=== PATIENT | male | born 1930 | race Caucasian/White ===

== ENCOUNTER 2017-08-10 13:14 | Emergency (ER) | payer MEDICARE, BC | END 2017-08-10 14:18 | disposition home or self-care (01) | LOC: SCSER 13:14 | DX: J06.9 Acute upper respiratory infection, unspecified (principal); I48.91 Unspecified atrial fibrillation; E78.5 Hyperlipidemia, unspecified | CPT/HCPCS: 99283 ==

== ENCOUNTER 2017-08-14 21:17 | Emergency (ER) | payer MEDICARE, BC ==
[2017-08-14 22:00] LABS: ALT (SGPT) 18 U/L (8-55); AST (SGOT) 24 U/L (5-34); Albumin 3.5 g/dL (3.4-4.8); Alkaline Phosphatase 55 U/L (40-150); Anion Gap 12 mmol/L (10-20); BUN (Urea Nitrogen) 14 mg/dL (8.4-25.7); Bilirubin, Total 0.4 mg/dL (0.2-1.2); Calc. Creatinine Clearance 0 mL/min (70-130); Calcium 8.8 mg/dL (7.8-10.44); Carbon Dioxide 26 mmol/L (23-31); Chloride 105 mmol/L (98-107); Estimated GFR-MDRD 55; Globulin 2.1 g/dL (2.4-3.5); Glucose 107 mg/dL (83-110); Potassium 3.8 mmol/L (3.5-5.1); Protein, Total 5.6 g/dL (5.8-8.1); Sodium 139 mmol/L (136-145)
[2017-08-14 22:13] LABS: Anisocytosis SLIGHT = 6-15 cells (100X) (0-5/hpf); Band 19 % (5-11); Eosinophils 2 % (0-10); Giant Platelets SLIGHT; Hemoglobin 12.6 g/dL (14.0-18.0); Lymphocytes 6 % (21-51); MDiff Complete? YES; Macrocytosis SLIGHT = 6-15 cells (100X) (0-5/hpf); Mean Corpuscular HGB CONC 33.9 g/dL (32.0-36.0); Mean Corpuscular Hemoglobin 35.2 pg (27.0-31.0); Mean Platelet Volume 9.1 fL (7.4-10.4); Monocytes 4 % (0-10); Neutrophil 64 % (42-75); PLT Morphology Comment Appears Adequate; Platelet Count 126 thou/uL (130-400); RBC Distribution Width 14.3 % (11.5-14.5); Reactive Lymphocytes 2 % (0-10); Red Blood Cell (RBC) Count 3.59 mill/uL (4.70-6.10); Stomatocytes SLIGHT = 2-5 cells (100X) (0-1/hpf); White Blood Cell (WBC) Count 3.9 thou/uL (4.8-10.8)
[2017-08-14] MEDS ORDERED: cefTRIAXone\\ROCEPHIN 1 GM VIAL ONE (22:22)
[2017-08-14] MEDS ORDERED: Azithromycin 250 MG TAB ONE ×2 (22:22→22:32)
[2017-08-14] MEDS ORDERED: Sodium Chloride 0.9% 100 ML ONE (22:23)
--- NOTE | 2017-08-14 22:23 | RAD ---
CHEST TWO VIEWS 08/14/17 COMPARISON: 10/03/09. HISTORY: Sore throat and cough. FINDINGS: Right sided Mediport catheter with distal tip projecting over the superior vena cava. Slight elongati on of the aorta. Normal cardiac silhouette. Pulmonary vessels and hilum are normal. Costophrenic angl es are clear. Hyperinflation. Chronic changes. No masses or consolidation. No pneumothorax. Probable old healed right proximal humerus fracture. Correlate clinically. IMPRESSION: 1. Chronic changes. 2. Probable old right proximal humerus fracture. Correlate clinically. POS: [facility]
== END 2017-08-14 23:32 | disposition home or self-care (01) ==
LOC: SCSER 21:17
DX: J20.9 Acute bronchitis, unspecified (principal); E78.5 Hyperlipidemia, unspecified; I48.91 Unspecified atrial fibrillation; Z79.899 Other long term (current) drug therapy; Z79.82 Long term (current) use of aspirin
CPT/HCPCS: 71046; 80053; 85025; 87804; 96365; J0696; J7050

== ENCOUNTER 2017-09-30 19:09 | Inpatient (IN) | payer MEDICARE, BC ==
[2017-09-30 20:25] LABS: Anion Gap 14 mmol/L (10-20); BUN (Urea Nitrogen) 15 mg/dL (8.4-25.7); Calc. Creatinine Clearance 0 mL/min (70-130); Carbon Dioxide 23 mmol/L (23-31); Chloride 105 mmol/L (98-107); Estimated GFR-MDRD 52; Glucose 112 mg/dL (83-110); Potassium 3.6 mmol/L (3.5-5.1); Sodium 138 mmol/L (136-145)
[2017-09-30 20:29] LABS: Anisocytosis SLIGHT = 6-15 cells (100X) (0-5/hpf); Band 19 % (5-11); Elliptocytes SLIGHT = 2-5 cells (100X) (0-1/hpf); Eosinophils 5 % (0-10); Hypochromia SLIGHT = 6-15 cells (100X) (0-5/hpf); Lymphocytes 12 % (21-51); MDiff Complete? YES; Macrocytosis MODERATE=16-30 cells (100X) (0-5/hpf); Mean Corpuscular HGB CONC 33.1 g/dL (32.0-36.0); Mean Corpuscular Hemoglobin 34.3 pg (27.0-31.0); Mean Platelet Volume 17.1 fL (7.4-10.4); Monocytes 8 % (0-10); Neutrophil 51 % (42-75); PLT Morphology Comment Appears Decreased; Platelet Count 78 thou/uL (130-400); RBC Distribution Width 16.2 % (11.5-14.5); Reactive Lymphocytes 3 % (0-10); Reflex for Review?? NO; White Blood Cell (WBC) Count 2.2 thou/uL (4.8-10.8)
[2017-09-30] MEDS ORDERED: Sodium Chloride 0.9% 100 ML ONE (20:38)
[2017-09-30] MEDS ORDERED: cefTRIAXone\\ROCEPHIN 2 GM VIAL ONE (20:38)
--- NOTE | 2017-09-30 21:31 | RAD ---
TWO VIEWS CHEST: Date: 09-30-17 Comparison: 08-14-17 History: Cough with mucous, fever. FINDINGS: Stable right sided port-a-cath. Heart and mediastinal contours are stable with no pneumothorax or ple ural fluid and no focal consolidation or alveolar edema. There are thoracic spine degenerative change s. There is an old fracture of the proximal humerus on the right and there are degenerative changes i nvolving bilateral AC joints. IMPRESSION: No acute findings. POS: [facility]
[2017-09-30] MEDS ORDERED: Vancomycin HCl 500 MG VIAL ONE (21:32)
[2017-09-30] MEDS ORDERED: Sterile Water 30 ML ONE (21:33)
[2017-09-30] MEDS ORDERED: Oseltamivir 75 MG CAP ONE (21:52)
[2017-09-30 21:58] LABS: Bilirubin Negative (Negative); Blood, Urine Trace (Negative); Clarity Slightly Cloudy (Clear); Glucose, Urine (Dipstick) Negative (Negative); Leukocyte Negative (Negative); Nitrite Negative (Negative); Protein, Urine (Dipstick) 30 mg/dL (Neg-Trace); Urobilinogen 0.2 mg/dL (0.2-1.0); pH, Urine 5.5 (5.0-9.0)
[2017-09-30 22:01] LABS: Bacteria/HPF Rare-Few HPF (None Seen); Crystals/HPF 1+ AMORPH URATES HPF (Negative); RBC/HPF 0-3 HPF (0-3); Squamous Epithelial 0-3 HPF (0-3); WBC/HPF 0-3 HPF (0-3)
[2017-09-30 22:26] LABS: Dohle Bodies SLIGHT
[2017-09-30 22:54] VITALS: BMI 23.6
[2017-09-30] MEDS ORDERED: Ondansetron ODT 4 MG TAB SL PRN (23:15)
[2017-09-30] MEDS ORDERED: Acetaminophen 325 MG TAB PO PRN (23:15)
[2017-09-30] MEDS ORDERED: Ondansetron HCl/PF 4 MG/2 ML Vial IVP PRN (23:15)
[2017-10-01] MEDS ORDERED: Ondansetron ODT 4 MG TAB PO PRN (00:32)
[2017-10-01] MEDS ORDERED: HYDROcodone/Acetaminophen 10/325 mg Tablet PO PRN (00:32)
[2017-10-01] MEDS ORDERED: HYDROcodone/Acetaminophen 5/325 mg Tablet PO PRN (00:32)
--- NOTE | 2017-10-01 06:03 | HP ---
DATE OF ADMISSION: 09/30/2017 TIME OF SERVICE: 2330 hours. PRIMARY CARE PHYSICIAN: Out of town. He is a city call. PRIMARY ONCOLOGIST HERE: Cecille He M.D. CHIEF COMPLAINT: Skin infection and fever. HISTORY OF PRESENT ILLNESS: Mr. Holland is a pleasant 87-year-old white male, who appears much young er than his stated age, who has a history of multiple myeloma, recent squamous cell carcinoma of scal p, status post resection and skin graft in the left thigh. He is getting chemo for his multiple myel senthil, the last was about 3 weeks ago. He takes on the first week of the month. The patient has had 3 days of just feeling poorly. Over the last few days, he has felt more sick with cough, congestion, and body aches. He had a temperature of 102.5 today and cough productive of some clear to white phle gm. He presented to an outside emergency department, where he was evaluated. Total white blood cell count was 2.2, but ANC was 1500. He has had 19% bands, 70,000 platelets and otherwise fairly normal chemistries. His graft harvest site from his left thigh was red and granulating, but did have some erythema, minimal drainage and multiple sub to 1 mm pustules present around the outside edge. Due to possibility of wound infection and fever, he was transported, directly admitted to our hospital. After acceptance, the patient's flu test did come back positive. He has been placed on flu precautio ns. On arrival, he is feeling better. Denies any current fevers or chills, nausea, and vomiting. PAST MEDICAL HISTORY: 1. Chronic atrial fibrillation. 2. Multiple myeloma. 3. Squamous cell carcinoma of the scalp. 4. Resume chemotherapy for myeloma. 5. Hyperlipidemia. 6. Gout, not active. PAST SURGICAL HISTORY: 1. Cholecystectomy. 2. Bilateral TKA remotely. 3. Skin cancer removal about 2 months ago and skin grafting about 2 months ago. HOME MEDICATIONS: 1. Doxycycline 100 mg daily for prophylaxis. 2. Allopurinol 300 mg daily. 3. Cyclobenzaprine 10 mg daily. 4. Oxycodone 5 mg daily. 5. Aspirin 81 mg daily. 6. Eplerenone 25 mg daily. 7. Calcium carbonate 600 mg daily. 8. Welchol 625 mg daily. 9. Diltiazem extended-release 240 mg daily. 10. Carac 0.5% topical. 11. Folate 0.4 mg daily. 12. [place]bank 5/325 as needed. 13. Nitroglycerin sublingual as needed. 14. Prednisone 20 mg daily. 15. Revlimid 2.5 mg daily. 16. Valcyte 500 mg daily. 17. Eliquis 5 mg p.o. b.i.d. ALLERGIES: STATINS. FAMILY HISTORY: Negative for clotting or bleeding disorder, no immune dysfunction. SOCIAL HISTORY: Significant for occasional alcohol, but negative for drugs or tobacco. REVIEW OF SYSTEMS: A 10-point review of systems was performed and is negative for all other systems except stated as per HPI. PHYSICAL EXAMINATION: VITAL SIGNS: Temperature 99.3, pulse 56, blood pressure 107/47, respiratory rate 16, is in 90% room air. GENERAL: He is awake. He is alert. He is oriented x3. Well-developed, well-nourished, elderly whi te male, appears to be in no acute distress. HEENT: Normocephalic, atraumatic. Pupils equal and reactive bilaterally. Mucous membranes moist. No visible lesion or thrush. NECK: Supple with no lymphadenopathy, JVD, or thyromegaly. LUNGS: Clear. He has no wheezes, no rales, no rhonchi. With deep inspiration, does have a pretty s ignificant cough, but it is nonproductive. CARDIOVASCULAR: He has a normal cardiac. He does appear to be regular. He has no audible murmurs. ABDOMEN: Soft. It is nontender, nondistended. No masses or organomegaly. EXTREMITIES: Show no cyanosis, no clubbing, no edema, 2+ peripheral pulses in dorsalis pedis and pos terior tibial arteries. SKIN: He has a 2-3 cm circular scar on the right posterior scalp is well healed from the skin graft. On his left thigh, he has a 3 x 5 cm rectangle graft harvest site. It is hypergranulated in areas surrounding the entire wound. He does have a 2-3 rows of 1/2-1 mm pustules present. These were nont karen and not draining at present. He does have some slight seropurulent drainage. There is no fluc tuance. NEUROLOGIC: Cranial nerves II through XII are grossly intact. There are no focal deficits. MUSCULOSKELETAL EXAM: Normal to inspection. Large joints appear uninflamed. They have no palpable effusions. LABORATORY DATA: Sodium 138, potassium 3.8, chloride 105, bicarb 23, BUN 15, creatinine 1.31, which is baseline. Glucose of 112 and calcium of 8.0. CBC showed a white count of 2.2, hemoglobin 10.0, hematocrit 30.1, and platelet count is 78,000. ANC is 1500. He has 51% granulocytes, 19% bands, 12% lymphocytes, and 3% atypical lymphocytes. RADIOGRAPHIC STUDIES: He had chest x-ray that showed MediPort of the right chest. He has interstiti al prominence, but no consolidative changes. MICROBIOLOGIC DATA: He had a nasal swab for influenza that is positive for flu A, negative for flu B . ASSESSMENT AND PLAN: 1. Influenza A. 2. Impetigo of the left thigh graft harvest site. 3. Multiple myeloma. 4. Receive chemotherapy. 5. Paroxysmal atrial fibrillation, currently in sinus rhythm. 6. Hyperlipidemia. 7. History of gout. 8. We will resume home medications. We will add Bactrim-DS 2 p.o. b.i.d. for the impetigo and does look Staphylococcal. He has been on doxycycline for prophylaxis at low dose, but not enough obviousl y to treat. We will start oseltamivir for his Tamiflu 75 mg b.i.d. for 5 days and we placed him in d roplet precautions. I will notify Dr. He of his admission. Last wound care to evaluate him for his nonhealing wound . I think likely he might need some nonadherent dressing or Vaseline gauze with some silver nitrate and silver sulfadiazine for the antimicrobial properties, at least initially. Placed the patient in observation overnight and reevaluate in the morning.
[2017-10-01] MEDS: Oseltamivir 75 MG CAP PO SCH ×2 (08:11→20:45)
[2017-10-01] MEDS: Acetaminophen 325 MG TAB PO PRN ×2 (08:11→20:48)
[2017-10-01] MEDS: Sulfameth/Trimethoprim DS 800-160mg TAB PO SCH ×2 (08:11→20:46)
[2017-10-01] MEDS: Famotidine 20 MG TAB PO SCH (08:11)
--- NOTE | 2017-10-01 13:53 | PDOC.PN ---
- Subjective Encounter Start Date: 10/01/17 Encounter Start Time: 13:51 cc: dYSPNEA SUB: Pt c/o some cough - Objective Resuscitation Status: Resuscitation Status FULL:Full Resuscitation Vital Signs & Weight: Vital Signs (12 hours) Temp Pulse Resp BP Pulse Ox 10/01/17 11:43 97.9 F 67 20 130/76 96 10/01/17 08:00 97.9 F 67 20 96 10/01/17 07:40 99.4 F 73 14 125/66 95 10/01/17 05:54 98.8 F 68 20 121/61 93 L Weight Admit Weight 159 lb 13.362 oz Weight 159 lb 13.362 oz I&O: 09/30/17 10/01/17 10/02/17 06:59 06:59 06:59 Intake Total 424 Balance 424 Result Diagrams: 09/30/17 20:00 09/30/17 20:00 Phys Exam - Physical Examination Constitutional: NAD HEENT: moist MMs Neck: no JVD Respiratory: no wheezing, no rales positive crackles Cardiovascular: RRR, no significant murmur, no rub Gastrointestinal: soft, non-tender Musculoskeletal: no edema Neurological: non-focal Psychiatric: normal affect Dx/Plan - Plan Pt is 87 yrs old male 1. Acute influenza infection 2. Leukopenia 3. H/O MM 4. Weakness 5. Left thigh impetigo 6. AFIB plan: 1. Continue tamiflu and bactrim. Will consult Dr Benitez to evaluate patient. 2. Continue iv fluids 3. Repeat CBC with diff & BMP in am 4. Hold eliquis due to thrombocytopenia 5. Monitor bp closely case d/w pt & RN
--- NOTE | 2017-10-01 15:00 | CON ---
DATE OF CONSULTATION: 10/01/2017 REASON FOR CONSULTATION: Multiple myeloma. HISTORY OF PRESENT ILLNESS: Mr. Holland is a pleasant 87-year-old gentleman who has a lambda light c teena multiple myeloma, he is on daratumumab which he receives monthly. His last dose was on 09/17/2017. Over the last few days, he began to feel poorly with body aches, cough, and congestion. His temperature was elevated at 102.5. So he presented to the emergency room for evaluation. He w as positive for influenza A. He has a history of squamous cell carcinoma of the scalp. He had a rec ent skin graft from his right side. This area was also red and inflamed with pustules. He was thus admitted for further treatment. Patient had a history of leukopenia with baseline WBC around 2.5-4. He is on prophylactic Valtrex daily. He has no complaints at this time. PAST MEDICAL HISTORY: 1. Lambda light chain multiple myeloma. 2. Squamous cell carcinoma of the scalp. 3. History of pathological fracture of the right humerus. 4. Osteoarthritis. 5. History of varicella zoster. 6. Hypertension. 7. Coronary artery disease. 8. High cholesterol. PAST SURGICAL HISTORY: 1. MediPort placement. 2. Cholecystectomy. 3. Skin graft. ALLERGIES: No known drug allergies. HOME MEDICATIONS: 1. Eliquis 5 mg b.i.d. 2. Aspirin 81 mg daily. 3. Welchol 625 daily. 4. Flexeril daily. 5. Diltiazem 240 daily. 6. Doxycycline hyclate 100 mg q.12. 7. Eplerenone 25 mg daily. 8. Folic acid daily. 9. Oxycodone p.r.n. 10. Prednisone daily. 11. Tramadol p.r.n. 12. Valtrex 500 mg daily. FAMILY HISTORY: Noncontributory. SOCIAL HISTORY: , lives with his spouse. Spends most of his time in [place]. No alco hol, tobacco or illicit drug use. REVIEW OF SYSTEMS: Twelve point review of systems is negative except for noted in HPI. PHYSICAL EXAMINATION: VITAL SIGNS: Temperature is 97.9, pulse is 67, respiratory rate 20, BP is 130/76, 96% on room air. GENERAL: Well-developed, well-nourished male in no acute distress. HEENT: Normocephalic, atraumatic. Pupils are equal, round and reactive to light. NECK: Supple. CARDIOVASCULAR: Regular rate and rhythm. LUNGS: Clear. ABDOMEN: Soft and nontender. Bowel sounds are positive. EXTREMITIES: No clubbing, cyanosis or edema. SKIN: He has a dressing on his right side from skin graft and a healing resection on his scalp from squamous cell. He does have nonraised rash on his chest. NEUROLOGIC: Nonfocal. HEMATOLOGIC: There is no petechia or purpura. PSYCHIATRIC: He is alert, oriented and appropriate. PERTINENT LABORATORY DATA AND IMAGING DATA: Current WBCs are 2.2, hemoglobin 10, hematocrit 30.1, an d platelet count is 78,000. He has got 51% neutrophils, 19% bands, 12% lymphocytes. Sodium is 138, potassium 3.6, chloride 105, CO2 is 23, BUN is 15, and creatinine 1.31. Lactic acid 1.7, calcium is 8. Urine is negative for bacteria. Influenza A positive. ASSESSMENT AND PLAN: 1. Lambda light chain multiple myeloma on Darzalex. 2. Chronic leukopenia. 3. Influenza A. 4. 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 DISCUSSION: The patient has been placed on Tamiflu. He is receiving antibiotics and wound care for his left thigh infection. Would recommend changing from Bactrim as patient is already thrombocytopen ic. We will follow daily CBC and advised to provide supportive care. Thank you for the consult.
[2017-10-02] MEDS: Famotidine 20 MG TAB PO SCH (09:24)
[2017-10-02] MEDS: Sulfameth/Trimethoprim DS 800-160mg TAB PO SCH (09:25)
[2017-10-02] MEDS: Oseltamivir 75 MG CAP PO SCH (10:35)
--- NOTE | 2017-10-02 13:52 | DIS ---
DATE OF ADMISSION: 09/30/2017 DATE OF DISCHARGE: 10/02/2017 PRIMARY CARE PROVIDER: Dr. Cecille He. DISCHARGE DISPOSITION: Discharged home. FINAL DIAGNOSES: Influenza A; cellulitis of left upper leg; multiple myeloma; pancytopenia; chronic kidney disease, stage 3; atrial fibrillation, chronic anticoagulation; dyslipidemia. DISCHARGE MEDICATIONS: New, Septra-DS 1 p.o. b.i.d. x10 more days, Tamiflu 75 mg p.o. b.i.d. for a t otal of 5 days. Other medicines are chronic home medicines. They are Eliquis 5 mg p.o. b.i.d., Revl imid 2.5 mg a day, Valtrex 500 mg p.o. b.i.d., prednisone 20 mg as directed, allopurinol 300 mg a day , eplerenone 25 mg a day, diltiazem 240 mg a day, tramadol 50 mg p.o. q.6 hours p.r.n., folic acid 0. 4 mg a day, oxycodone 5 mg p.o. q.6 hours p.r.n., Aspirin 81 mg a day, Flexeril 10 mg a day, Welchol 625 mg a day. ALLERGIES: STATINS. CODE STATUS: FULL. PENDING AT THE TIME OF DISCHARGE: Two blood cultures are negative to date at 48 hours. HOSPITAL COURSE: [facility] with skin infection or fever. His basic metabolic profile was normal except for BUN 15, c reatinine 1.31, which is baseline. CBC showed a white count of 2.2, hemoglobin 10, platelet count of 78,000. Chest x-ray revealed no pneumonia. Nasal swab revealed flu A. He was started on Septra-DS 2 twice a day and Tamiflu. He has improved dramatically during his hospital stay. Currently, chest is clear. Heart, regular rate and rhythm. Vital signs are stable, afebrile. His Septra is being d ropped to 1 b.i.d. at discharge due to his chronic kidney disease, stage 3. No consultations were obtained. No procedures were done. The patient is doing well, feels well and wants to go home. He has appointment with Dr. He on 10/10/2017. He will keep that. He has bee n told to return to the hospital if he gets worse.
[2017-10-02 16:23] VITALS: BP 146/77; TEMP 97.9
== END 2017-10-02 16:45 | disposition home or self-care (01) | DRG 863 ==
LOC: SCSER 19:09 → T4-B 20:35 → OBSVTOIN 10-01 13:31
PROVIDERS: ADMIT Internal Medicine; ATTEND Internal Medicine
DX: T81.4XXA Infection following a procedure, initial encounter (principal); D61.818 Other pancytopenia; C90.00 Multiple myeloma not having achieved remission; D69.6 Thrombocytopenia, unspecified; I48.0 Paroxysmal atrial fibrillation; N18.3 Chronic kidney disease, stage 3 (moderate); B99.9 Unspecified infectious disease; L03.116 Cellulitis of left lower limb; J10.1 Influenza due to other identified influenza virus with other respiratory manifestations; I48.2 Chronic atrial fibrillation; D72.819 Decreased white blood cell count, unspecified; L01.00 Impetigo, unspecified; Z85.828 Personal history of other malignant neoplasm of skin; E78.5 Hyperlipidemia, unspecified; Z79.01 Long term (current) use of anticoagulants; I12.9 Hypertensive chronic kidney disease with stage 1 through stage 4 chronic kidney disease, or unspecified chronic kidney disease
CPT/HCPCS: 71046; 80048; 81003; 81015; 83605; 85025; 87040; 87804; 96365; 96367; A4216; J0696; J3370; J7050

== ENCOUNTER 2018-08-28 13:36 | Emergency (ER) | payer MEDICARE, BC ==
[2018-08-28] MEDS ORDERED: Sodium Chloride 0.65% Nasal 44 ML BOT ONE (14:02)
--- NOTE | 2018-08-28 14:22 | RAD ---
CHEST TWO VIEWS: History: Cough for three weeks. Flu-like symptoms. History of multiple myeloma. Comparison: 09-30-17 FINDINGS: Right sided central line and access port. Heart size is normal. No confluent pneumonia, overt edema, or pleural effusion. There is some heterogeneous nodularity to the bone structures of the right and l eft humeri with probable healed right proximal humeral shaft fracture, stable. No confluent pneumonia , overt edema, or pleural effusion. IMPRESSION: No evidence for pneumonia or other acute process. Stable heterogeneous mineralization of the right an d left humeri with evidence for a stable healed right proximal humeral shaft fracture. 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 POS: [facility]
== END 2018-08-28 14:58 | disposition home or self-care (01) ==
LOC: SCSER 13:36
DX: J20.9 Acute bronchitis, unspecified (principal); I49.9 Cardiac arrhythmia, unspecified; I48.91 Unspecified atrial fibrillation; E78.5 Hyperlipidemia, unspecified; M10.9 Gout, unspecified; Z79.899 Other long term (current) drug therapy; Z79.82 Long term (current) use of aspirin; Z79.01 Long term (current) use of anticoagulants
CPT/HCPCS: 71046; 87798